=== PATIENT | female | born 1965 | race Caucasian/White ===

== ENCOUNTER → 2019-10-08 | Outpatient (CLI) | payer BC | END | disposition home or self-care (01) | LOC: SHCH 08:22 | PROVIDERS: ATTEND Internal Medicine Cardiovascular Disease | DX: R07.9 Chest pain, unspecified (principal) | CPT/HCPCS: 93306 ==

== ENCOUNTER → 2019-11-15 | Outpatient (CLI) | payer BC ==
[~2019-11-15] MED LIST: REGADENOSON 0.4 MG/5 ML PF SYG IVP SCH
== END | disposition home or self-care (01) ==
LOC: SHCH 07:43
PROVIDERS: ATTEND Internal Medicine Cardiovascular Disease
DX: I10 Essential (primary) hypertension (principal); R07.89 Other chest pain; R00.2 Palpitations; R51 Headache
CPT/HCPCS: 78452; 93017; 96374; A9500 ×2; J2785

== ENCOUNTER 2020-10-24 05:54 | Day surgery (SDC) | payer BC ==
[2020-10-19 10:41] LABS: BASOPHILS % (AUTO) 0.6 % (0.0-5.0); EOSINOPHILS % (AUTO) 1.6 % (0.0-8.0); LYMPHOCYTES % (AUTO) 32.3 % (21.0-51.0); MEAN CORPUSCULAR HEMOGLOBIN 26.1 pg (27.0-33.0); MEAN CORPUSCULAR HGB CONC 32.4 g/dL (32.0-36.0); MEAN CORPUSCULAR VOLUME 80.5 fL (79-99); MONOCYTES % (AUTO) 6.1 % (3.0-13.0); NEUTROPHILS % (AUTO) 58.9 % (40.0-77.0); PLATELET COUNT (AUTO) 328 K/uL (130-400); RED BLOOD CELL COUNT(AUTO) 6.21 MIL/uL (4.00-5.50); RED CELL DISTRIBUTION WIDTH 13.2 % (11.0-15.5); WHITE BLOOD COUNT (AUTO) 7.9 K/uL (4.8-10.8)
[2020-10-19 10:48] LABS: POTASSIUM 3.7 mmol/L (3.5-5.1)
[2020-10-19 10:51] LABS: PROTHROMBIN TIME 10.7 SEC (9.6-11.6)
[2020-10-19 10:52] LABS: PARTIAL THROMBOPLASTIN TIME 26.8 SEC (26.3-35.5)
[2020-10-19 10:55] LABS: APPEARANCE,URINE Cloudy (CLEAR); BILIRUBIN,URINE Negative (NEGATIVE); COLOR,URINE Yellow (YELLOW); GLUCOSE, URINE (UA) TRACE mg/dL (NEGATIVE); KETONES,URINE Negative (NEGATIVE); LEUKOCYTE ESTERASE ,URINE Trace (NEGATIVE); NITRATE,URINE Negative (NEGATIVE); OCCULT BLOOD,URINE Negative (NEGATIVE); PH,URINE 7.5 (5.0-8.0); PROTEIN,URINE Negative (NEGATIVE); UROBILINOGEN,URINE 0.2 mg/dL (0.2-1.0)
[2020-10-19 11:22] LABS: AMORPHOUS SEDIMENT,UR Few /LPF (None Seen); BACTERIA,URINE Rare /HPF (None Seen); RBC,URINE 0-1 /HPF (0-1)
[2020-10-23 10:38] VITALS: BP 169/85
[~2020-10-24] VITALS: Ht 157.5 cm; Wt 85.9 kg
[2020-10-24] VITALS (11 sets, daily range): BP systolic 128–166; BP diastolic 74–99
[~2020-10-24 05:54] MED LIST changes: +ACETAMINOPHEN 325 MG TAB PO PRN; +ASPI-1443 PO; +BISO5TAB19 PO; +DILT300C51 PO; +ESTR1TAB17 PO; +LANS30CA55 PO; +MELO-108 PO; +MONT10TA21 PO; +OMEP1CAP2 PO; +PITA1TAB2 PO; +PROG200C11 PO; -REGADENOSON 0.4 MG/5 ML PF SYG IVP SCH; +ROSU5TAB12 PO; +SODIUM CHLORIDE 0.9% 500ML 500 ML IV SCH; +THYR90TA PO
[2020-10-24] MEDS ORDERED: SODIUM CHLORIDE 0.9% 1000ML 1,000 ML IV ONE (06:12)
[2020-10-24] MEDS ORDERED: SODIUM BICARB 50MEQ 50ML VIAL 50 ML ONE (07:13)
[2020-10-24] MEDS ORDERED: IOHEXOL-350 50ML VIAL IV ONE (07:14)
[2020-10-24] MEDS ORDERED: NICARDIPINE HCL 25 MG/10 ML ML IV ONE (07:14)
[2020-10-24] MEDS ORDERED: NITROGLYCERIN 2 MG/VIAL VIAL IV ONE (07:14)
[2020-10-24] MEDS ORDERED: IOHEXOL 350 MG/ML 100ML INFUS..BTL IV ONE (07:14)
[2020-10-24] MEDS ORDERED: MEPERIDINE-PF 25 MG/ML SYG ONE ×2 (07:14→07:38)
[2020-10-24] MEDS ORDERED: MIDAZOLAM HCL 1 MG/ML 2ML VIAL ONE ×2 (07:15→07:39)
[2020-10-24] MEDS ORDERED: LIDOCAINE HCL 2% 20ML ONE (07:15)
[2020-10-24] MEDS ORDERED: HEPARIN SODIUM 1000UNIT/ML 10ML VIAL ONE (08:15)
[2020-10-24] MEDS ORDERED: SODIUM CHLORIDE 0.9% 1000ML 1,000 ML IV SCH (08:15)
== END 2020-10-24 12:40 | disposition home or self-care (01) ==
LOC: DAH 05:54
PROVIDERS: ATTEND Internal Medicine Cardiovascular Disease
DX: I20.9 Angina pectoris, unspecified (principal); R94.39 Abnormal result of other cardiovascular function study; I10 Essential (primary) hypertension; E03.9 Hypothyroidism, unspecified; K21.9 Gastro-esophageal reflux disease without esophagitis; E78.5 Hyperlipidemia, unspecified; Z79.82 Long term (current) use of aspirin; Z79.899 Other long term (current) drug therapy; Z98.890 Other specified postprocedural states; Z79.02 Long term (current) use of antithrombotics/antiplatelets; Z90.49 Acquired absence of other specified parts of digestive tract; Z80.9 Family history of malignant neoplasm, unspecified; Z82.49 Family history of ischemic heart disease and other diseases of the circulatory system; Z79.890 Hormone replacement therapy
CPT/HCPCS: 36415; 71045; 80048; 81001; 85025; 85610; 85730; 93005 ×2; 93458; A4215; A4216; A4221; A4222; A4223 ×3; A4606; A4663; C1769; C1894; J1644 ×2; J2175 ×2; J2250 ×2; J3490 ×4; J7030; Q9965; Q9967 ×2; 99156; 99157

== ENCOUNTER → 2024-12-17 | Outpatient (CLI) | payer OTHER ==
[~2024-12-17] MED LIST changes: -ACETAMINOPHEN 325 MG TAB PO PRN; +DILT300C42 PO; -DILT300C51 PO; +MONT-46 PO; -MONT10TA21 PO; -PITA1TAB2 PO; -ROSU5TAB12 PO; +ROSU5TAB51 PO; -SODIUM CHLORIDE 0.9% 500ML 500 ML IV SCH
--- NOTE | 2024-12-21 07:42 | HMCSR ---
APPROVED REPORT EXAM: Two-dimensional and M-mode echocardiogram with Doppler and color Doppler. INDICATION ICD: I10.0 Essential (primary) Hypertension 2D Dimensions RVDd3.8 cmLVEF(%)54.6 (>50%)LVED Vol(simp.)83.0 mL IVSd1.2 (0.7-1.1cm)FS(%)28 %LVES Vol(simp.)36.0 mL LVDd4.1 (3.8-5.6cm)Ao Root(2D)3.1 (2.0-3.7cm)LVEF(%, simp.)57 % PWd1.2 (0.7-1.1cm)LVOT diam2.0 (1.8-2.4cm)LA ESV INDEX (BP)18.39 mL/m2 LVDs3.0 (2.5-4.0cm)IVC diam1.1 cm Aortic Valve AoV Vmax1.2 m/Tiffanie Peak GR5.7 mmHgLVOT Vmax1.0 m/s AoV VTI0.2 mAo Mean GR2.8 mmHgLVOT VTI0.19 m COURTNEY (VMAX)2.6 cm2AVA (VTI) 2.6 cm2 Mitral Valve MV E Vmax66.8 cm/sDECEL Time72 ms MV A Vmax89.3 cm/sP 1/2 T21 ms E/A ratio0.7MVA (PHT)10.6 cm2 TDI E/E' Fvklwl85.7E/E' Lateral8.2 Pulmonary Valve PV Vmax0.9 m/sPV VTI0.16 mPV Mean GR2 mmHg PV Peak GR3.1 mmHg Tricuspid Valve TR Vmax2.3 m/sRAP (EST) 3 msKmCYPA14.2 mmHg TR Peak GR21.2 mmHg Left Ventricle Left ventricular cavity size is normal. There is normal LV segmental wall motion. There is mild evangelista ntric left ventricular hypertrophy. LVEF is 55-60%. No left ventricle thrombus noted on this study. G rade 1 diastolic dysfunction Right Ventricle The right ventricle is normal size. Right ventricular systolic function is mildly reduced. Atria The left atrium size is normal. The right atrium size is normal. Aortic Valve Aortic valve is trileaflet. Aortic valve leaflets are sclerotic but open well. Trace aortic regurgita tion. There is no aortic valvular stenosis. Mitral Valve Mitral valve leaflets are mildly sclerotic but open well. Mitral regurgitation is trace. There is no mitral valve stenosis. Tricuspid Valve The tricuspid valve leaflets appear normal. There is trace tricuspid regurgitation. Pulmonic Valve Pulmonic valve is not well visualized. There is trace pulmonic valvular regurgitation. Great Vessels The aortic root is normal in size. The IVC is normal in size and collapses >50% with inspiration. Pericardium No pericardial effusion. Conclusion Left ventricular cavity size is normal. There is mild concentric left ventricular hypertrophy. LVEF is 55-60%. Grade 1 diastolic dysfunction The right ventricle is normal size. Right ventricular systolic function is mildly reduced. The left atrium size is normal. Aortic valve is trileaflet. Aortic valve leaflets are sclerotic but open well. Trace aortic regurgitation. Mitral valve leaflets are mildly sclerotic but open well. Mitral regurgitation is trace. There is trace tricuspid regurgitation. The aortic root is normal in size. The IVC is normal in size and collapses >50% with inspiration. No pericardial effusion.
== END | disposition home or self-care (01) ==
LOC: SHCH 08:28
PROVIDERS: ATTEND Internal Medicine Cardiovascular Disease
DX: I08.0 Rheumatic disorders of both mitral and aortic valves (principal); I11.9 Hypertensive heart disease without heart failure
CPT/HCPCS: 93306